=== PATIENT | male | born 1985 | race Caucasian/White ===

== ENCOUNTER 2018-05-04 19:18 | Emergency (ER) | payer OTHER ==
[2018-05-04] MEDS ORDERED: BUPIVACAINE 0.5% PF 10 ML VIAL ONE (19:55)
[2018-05-04] MEDS ORDERED: LIDOCAINE 1% MPF 2 ML AMPULE ONE (20:00)
--- NOTE | 2018-05-04 20:23 | RAD REPORT ---
EXAM DESCRIPTION: RAD -Hand Left 3 View - 05/04/2018 8:13 pm CLINICAL HISTORY: Left hand pain status post injury FINDINGS: Avulsion fracture involves the first terminal tuft. Soft tissue laceration involves the second distal phalanx No dislocation is seen
--- NOTE | 2018-05-04 22:55 | EDPHYS ---
Physician Documentation [facility] Name: Vaibhav Pritchard Age: 33 yrs Sex: Male : 1985 Arrival Date: 05/04/2018 Time: 19:19 Bed 28 Private MD: ED Physician Saul Floyd HPI: 05/04 22:52 This 33 yrs old Male presents to ER via Ambulatory with complaints of Finger pm1 Injury. 22:52 The patient or guardian reports a laceration, irregular. The complaints affect the pm1 palmar aspect of distal phalanx of left index finger and palmar aspect of distal phalanx of left thumb. Context: The problem was sustained at home, resulted from Laceration from table saw, didn't use push stick. Onset: The symptoms/episode began/occurred just prior to arrival. Modifying factors: The symptoms are alleviated by nothing, the symptoms are aggravated by nothing. Associated signs and symptoms: Pertinent negatives: cyanosis distally, decreased sensation distally, numbness distally, tingling distally. The patient has not experienced similar symptoms in the past. The patient has not recently seen a physician. Tetanus 2 years ago. Historical: - Allergies: 19:32 No Known Allergies; aj - Home Meds: 19:32 Celexa Oral [Active]; aj - PMHx: 19:32 Anxiety; aj - PSHx: 19:32 Knee surgery; aj - Immunization history:: Adult Immunizations up to date. - Social history:: Smoking status: Patient/guardian denies using tobacco. - Ebola Screening: : Patient negative for fever greater than or equal to 101.5 degrees Fahrenheit, and additional compatible Ebola Virus Disease symptoms Patient denies exposure to infectious person Patient denies travel to an Ebola-affected area in the 21 days before illness onset No symptoms or risks identified at this time. ROS: 22:52 Constitutional: Negative for fever, chills, and weight loss, Eyes: Negative for injury, pm1 pain, redness, and discharge, ENT: Negative for injury, pain, and discharge, Neck: Negative for injury, pain, and swelling, Cardiovascular: Negative for chest pain, palpitations, and edema, Respiratory: Negative for shortness of breath, cough, wheezing, and pleuritic chest pain, Abdomen/GI: Negative for abdominal pain, nausea, vomiting, diarrhea, and constipation, Back: Negative for injury and pain. 22:52 Neuro: Negative for headache, weakness, numbness, tingling, and seizure. 22:52 MS/extremity: Positive for laceration, of the palmar aspect of distal phalanx of left thumb and palmar aspect of distal phalanx of left index finger. 22:52 Skin: Positive for laceration(s), of the palmar aspect of distal phalanx of left thumb and palmar aspect of distal phalanx of left index finger. Exam: 22:52 Constitutional: This is a well developed, well nourished patient who is awake, alert, pm1 and in no acute distress. Head/Face: Normocephalic, atraumatic. Eyes: Pupils equal round and reactive to light, extra-ocular motions intact. Lids and lashes normal. Conjunctiva and sclera are non-icteric and not injected. Cornea within normal limits. Periorbital areas with no swelling, redness, or edema. Chest/axilla: Normal chest wall appearance and motion. Nontender with no deformity. No lesions are appreciated. Cardiovascular: Regular rate and rhythm with a normal S1 and S2. No gallops, murmurs, or rubs. Normal PMI, no JVD. No pulse deficits. Respiratory: Lungs have equal breath sounds bilaterally, clear to auscultation and percussion. No rales, rhonchi or wheezes noted. No increased work of breathing, no retractions or nasal flaring. Back: No spinal tenderness. No costovertebral tenderness. Full range of motion. 22:52 MS/ Extremity: Pulses equal, no cyanosis. Neurovascular intact. Full, normal range of motion. 22:52 Skin: Appearance: normal except for affected area, injury, laceration(s), the wound is approximately 8 cm(s), of the palmar aspect of distal phalanx of left thumb and palmar aspect of distal phalanx of left index finger, that can be described as no foreign body, irregular s shaped to left thumb and linear with avulsion to distal tip of 2nd finger nail. Vital Signs: 19:32 BP 134 / 82; Pulse 81; Resp 17; Temp 97.4; Pulse Ox 98% on R/A; Weight 99.79 kg; Height aj 5 ft. 9 in. (175.26 cm); 20:30 BP 128 / 78; Pulse 78; Resp 18; Pulse Ox 100% on R/A; mg2 23:10 BP 122 / 78; Pulse 70; Resp 18; Pulse Ox 100% on R/A; Pain 0/10; mg2 19:32 Body Mass Index 32.49 (99.79 kg, 175.26 cm) aj Laceration: 22:52 Wound Repair of 8cm ( 3.1in ) subcutaneous laceration to palmar aspect of distal pm1 phalanx of left thumb and palmar aspect of distal phalanx of left index finger. Irregularly shaped.. Distal neuro/vascular/tendon intact. Anesthesia: Digital block administered with 6 mls of Lido/Marcaine. Wound prep: Extensive cleansing with betadine by me, Wound irrigation with saline by me, Wound explored extensively, Copious irrigation. Skin closed with 16 5-0 Prolene using simple sutures and sterile technique. Dressed with Neosporin, Kerlix. Patient tolerated well. MDM: 19:40 Patient medically screened. pm1 19:44 ED course: Patient offered pain medications and he refused. "Does do pain meds.". pm1 22:53 Data reviewed: vital signs. Data interpreted: Pulse oximetry: on room air is 100 %. pm1 Interpretation: normal. Counseling: I had a detailed discussion with the patient and/or guardian regarding: the historical points, exam findings, and any diagnostic results supporting the discharge/admit diagnosis, radiology results, the need for outpatient follow up, for definitive care, a hand specialist, to return to the emergency department if symptoms worsen or persist or if there are any questions or concerns that arise at home. 05/04 19:43 Order name: Hand Left 3 View XRAY; Complete Time: 20:29 pm1 05/04 19:44 Order name: Prolene, Sutures; Complete Time: 23:07 pm1 05/04 19:44 Order name: Dressing - Wound; Complete Time: 23:07 pm1 05/04 19:44 Order name: Gloves, Sterile; Complete Time: 23:07 pm1 05/04 19:44 Order name: Setup Suture Tray; Complete Time: 23:07 pm1 Administered Medications: 22:50 Drug: Bupivacaine (0.5 %) 10 ml Volume: 10 ml; Route: Infiltration; mg2 23:08 Follow up: Response: No adverse reaction; Marked relief of symptoms mg2 23:06 Drug: Ancef 1 grams Route: IM; Site: right gluteus; mg2 23:07 Follow up: Response: No adverse reaction; Medication administered at discharge. mg2 23:06 Drug: Bactrim (160 mg-800 mg (DS) 1 tablet Route: PO; mg2 23:07 Follow up: Response: No adverse reaction; Medication administered at discharge. mg2 23:07 Drug: Lidocaine (1 %) 5 ml Volume: 5 ml; Route: Infiltration; mg2 23:08 Follow up: Response: No adverse reaction; Marked relief of symptoms mg2 Disposition: 05/04/18 22:54 Discharged to Home. Impression: Laceration without foreign body of left thumb without damage to nail, Laceration without foreign body of left index finger with damage to nail, Left first distal tuft avulsion fracture. - Condition is Stable. - Discharge Instructions: Avulsion Fracture of the Hand, Laceration Care, Adult. - Prescriptions for Keflex 500 mg Oral Capsule - take 1 capsule by ORAL route every 12 hours for 10 days; 20 capsule. Bactrim DS 800- 160 mg Oral Tablet - take 1 tablet by ORAL route every 12 hours for 10 days; 20 tablet. Tylenol- Codeine #3 300-30 mg Oral Tablet - take 2 tablets by ORAL route every 6 hours As needed; 20 tablet. - Medication Reconciliation Form, Thank You Letter, Antibiotic Education, Prescription Opioid Use form. - Follow up: Emergency Department; When: As needed; Reason: Worsening of condition. Follow up: Anuj Macias MD; When: 2 - 3 days; Reason: Recheck today's complaints, Continuance of care, Re-evaluation by your physician. - Problem is new. - Symptoms have improved. Addendum: 05/06/2018 03:00 Co-signature as Attending Physician, Saul Floyd MD. g s Signatures: Dispatcher [employer] Cassie Sevilla RN RN Oliver Scott, ACCOUNTS PAYABLE PROCESSOR ACCOUNTS PAYABLE PROCESSOR pm1 Saul Floyd MD MD gs Gardose, Michele, RN RN mg2 Corrections: (The following items were deleted from the chart) 05/04 22:57 22:54 05/04/2018 22:54 Discharged to Home. Impression: Laceration without foreign body pm1 of left thumb without damage to nail; Laceration without foreign body of left index finger with damage to nail. Condition is Stable. Forms are Medication Reconciliation Form, Thank You Letter, Antibiotic Education, Prescription Opioid Use. Follow up: Emergency Department; When: As needed; Reason: Worsening of condition. Follow up: Anuj Macias; When: 2 - 3 days; Reason: Recheck today's complaints, Continuance of care, Re-evaluation by your physician. Problem is new. Symptoms have improved. pm1 23:10 22:57 05/04/2018 22:54 Discharged to Home. Impression: Laceration without foreign body mg2 of left thumb without damage to nail; Laceration without foreign body of left index finger with damage to nail; Left first distal tuft avulsion fracture. Condition is Stable. Discharge Instructions: Laceration Care, Adult. Prescriptions for Keflex 500 mg Oral Capsule - take 1 capsule by ORAL route every 12 hours for 10 days; 20 capsule, Bactrim DS 800-160 mg Oral Tablet - take 1 tablet by ORAL route every 12 hours for 10 days; 20 tablet. and Forms are Medication Reconciliation Form, Thank You Letter, Antibiotic Education, Prescription Opioid Use. Follow up: Emergency Department; When: As needed; Reason: Worsening of condition. Follow up: Anuj Macias; When: 2 - 3 days; Reason: Recheck today's complaints, Continuance of care, Re-evaluation by your physician. Problem is new. Symptoms have improved. pm1
--- NOTE | 2018-05-04 22:55 | ER ---
Nurse's Notes [facility] Name: Vaibhav Pritchard Age: 33 yrs Sex: Male : 1985 Arrival Date: 05/04/2018 Time: 19:19 Bed 28 Private MD: Diagnosis: Laceration without foreign body of left thumb without damage to nail;Laceration without foreign body of left index finger with damage to nail;Left first distal tuft avulsion fracture Presentation: 05/04 19:30 Presenting complaint: Patient states: Cut left thumb and index fingers with table saw aj just [employer], while cutting wood. Transition of care: patient was not received from another setting of care. Onset of symptoms was May 04, 2018. Risk Assessment: Do you want to hurt yourself or someone else? Patient reports no desire to harm self or others. Initial Sepsis Screen: Does the patient meet any 2 criteria? No. Patient's initial sepsis screen is negative. Does the patient have a suspected source of infection? No. Patient's initial sepsis screen is negative. Care prior to arrival: None. 19:30 Method Of Arrival: Ambulatory aj 19:30 Acuity: SWETA 4 aj Triage Assessment: 19:32 General: Appears in no apparent distress. comfortable, Behavior is calm, cooperative, aj appropriate for age. Pain: Complains of pain in dorsal aspect of distal phalanx of left thumb, dorsal aspect of distal phalanx of left index finger, palmar aspect of distal phalanx of left index finger, palmar aspect of distal phalanx of left thumb and left thumbnail. Neuro: Level of Consciousness is awake, alert, obeys commands, Oriented to person, place, time, situation, Appropriate for age. Respiratory: Airway is patent Respiratory effort is even, unlabored, Respiratory pattern is regular, symmetrical. Derm: Skin is intact, is healthy with good turgor, Skin is pink, warm \T\ dry. normal. Musculoskeletal: Reports pain in dorsal aspect of distal phalanx of left thumb, dorsal aspect of distal phalanx of left index finger, palmar aspect of distal phalanx of left index finger and palmar aspect of distal phalanx of left thumb. Injury Description: Laceration sustained to dorsal aspect of distal phalanx of left thumb, dorsal aspect of distal phalanx of left index finger, palmar aspect of distal phalanx of left index finger, palmar aspect of distal phalanx of left thumb and left index fingernail. Historical: - Allergies: 19:32 No Known Allergies; aj - Home Meds: 19:32 Celexa Oral [Active]; aj - PMHx: 19:32 Anxiety; aj - PSHx: 19:32 Knee surgery; aj - Immunization history:: Adult Immunizations up to date. - Social history:: Smoking status: Patient/guardian denies using tobacco. - Ebola Screening: : Patient negative for fever greater than or equal to 101.5 degrees Fahrenheit, and additional compatible Ebola Virus Disease symptoms Patient denies exposure to infectious person Patient denies travel to an Ebola-affected area in the 21 days before illness onset No symptoms or risks identified at this time. Screenin:40 Abuse screen: Denies threats or abuse. Denies injuries from another. Nutritional mg2 screening: No deficits noted. Tuberculosis screening: No symptoms or risk factors identified. Fall Risk None identified. Assessment: 19:52 General: Appears in no apparent distress. comfortable, Behavior is calm, cooperative. mg2 Pain: Complains of pain in left index fingernail and left hand Pain does not radiate. Pain currently is 6 out of 10 on a pain scale. Quality of pain is described as aching, Pain began gradually, Is intermittent, Alleviated by rest. Neuro: Level of Consciousness is awake, alert, obeys commands, Oriented to person, place, time, situation. Cardiovascular: Capillary refill < 3 seconds Patient's skin is warm and dry. Respiratory: Airway is patent Respiratory effort is even, unlabored, Respiratory pattern is regular, symmetrical. GI: No signs and/or symptoms were reported involving the gastrointestinal system. : No signs and/or symptoms were reported regarding the genitourinary system. EENT: No signs and/or symptoms were reported regarding the EENT system. Derm: Skin is healthy with good turgor, Skin is pink, warm \T\ dry. normal. Musculoskeletal: Circulation, motion, and sensation intact. Injury Description: Laceration sustained to left index fingernail and left hand. 20:49 Reassessment: Patient appears in no apparent distress at this time. Patient and/or mg2 family updated on plan of care and expected duration. Pain level reassessed. Patient is alert, oriented x 3, equal unlabored respirations, skin warm/dry/pink. 22:07 Reassessment: Patient appears in no apparent distress at this time. Patient and/or mg2 family updated on plan of care and expected duration. Pain level reassessed. Patient is alert, oriented x 3, equal unlabored respirations, skin warm/dry/pink. Vital Signs: 19:32 BP 134 / 82; Pulse 81; Resp 17; Temp 97.4; Pulse Ox 98% on R/A; Weight 99.79 kg; Height aj 5 ft. 9 in. (175.26 cm); 20:30 BP 128 / 78; Pulse 78; Resp 18; Pulse Ox 100% on R/A; mg2 23:10 BP 122 / 78; Pulse 70; Resp 18; Pulse Ox 100% on R/A; Pain 0/10; mg2 19:32 Body Mass Index 32.49 (99.79 kg, 175.26 cm) aj ED Course: 19:19 Patient arrived in ED. ds1 19:31 Triage completed. aj 19:32 Arm band placed on right wrist. Patient placed in an exam room. aj 19:35 Oliver Emanuel, IRMA is PHCP. pm1 19:35 Saul Floyd MD is Attending Physician. pm1 19:40 Lawrence Naidu, JARON is Primary Nurse. mg2 19:59 Patient has correct armband on for positive identification. mg2 20:07 Hand Left 3 View XRAY In Process Unspecified. EDMS 22:54 Anuj Macias MD is Referral Physician. pm1 23:08 suturing of left thumb and left index finger with prolene 5-0 13 stitches in th eleft mg2 thumb and 3 stitches in the left index finger under local anesthesia. Patient did not have IV access during this emergency room visit. Administered Medications: 22:50 Drug: Bupivacaine (0.5 %) 10 ml Volume: 10 ml; Route: Infiltration; mg2 23:08 Follow up: Response: No adverse reaction; Marked relief of symptoms mg2 23:06 Drug: Ancef 1 grams Route: IM; Site: right gluteus; mg2 23:07 Follow up: Response: No adverse reaction; Medication administered at discharge. mg2 23:06 Drug: Bactrim (160 mg-800 mg (DS) 1 tablet Route: PO; mg2 23:07 Follow up: Response: No adverse reaction; Medication administered at discharge. mg2 23:07 Drug: Lidocaine (1 %) 5 ml Volume: 5 ml; Route: Infiltration; mg2 23:08 Follow up: Response: No adverse reaction; Marked relief of symptoms mg2 Outcome: 22:54 Discharge ordered by . pm1 23:09 Discharged to home ambulatory, with family. mg2 23:09 Condition: stable 23:09 Discharge instructions given to patient, family, Instructed on discharge instructions, follow up and referral plans. medication usage, Demonstrated understanding of instructions, follow-up care, medications, Prescriptions given X 2. 23:10 Patient left the ED. mg2 Signatures: Dispatcher [employer] EDCassie Madrigal, RN RN Zeynep Oquendo ds1 Oliver Emanuel, IRMA CLINICAL ENGINEERING MANAGER pm1 Lawrence Naidu RN RN mg2
[2018-05-04] MEDS ORDERED: CEFAZOLIN SODIUM 1 GM/VIAL ONE (23:05)
[2018-05-04] MEDS ORDERED: SMZ./TMP. 800/160 MG TABLET ONE (23:06)
== END 2018-05-04 23:10 | disposition home or self-care (01) ==
LOC: ER 19:18
PROC: 0JQK0ZZ Repair Left Hand Subcutaneous Tissue and Fascia, Open Approach (ICD-10-PCS; principal; 2018-05-04)
DX: S61.012A Laceration without foreign body of left thumb without damage to nail, initial encounter (principal); S61.211A Laceration without foreign body of left index finger without damage to nail, initial encounter; S62.502A Fracture of unspecified phalanx of left thumb, initial encounter for closed fracture; W31.2XXA Contact with powered woodworking and forming machines, initial encounter; Y93.89 Activity, other specified; Y92.9 Unspecified place or not applicable; F41.9 Anxiety disorder, unspecified
CPT/HCPCS: 96372; 99283; J0690; J2001